=== PATIENT | male | born 1985 | race American Indian/Alaskan Native ===

== ENCOUNTER 2021-12-24 09:47 | Emergency (ER) | payer SELFPAY ==
[2021-12-24 10:07] VITALS: BP 129/90; PULSE 91; TEMP 97.4; BMI 30.7
[2021-12-24] MEDS ORDERED: KETOROLAC TROMETHAMINE 30 MG/1 ML VIAL IM ONE (10:34)
[2021-12-24] MEDS ORDERED: KETOROLAC TROMETHAMINE 30 MG/1 ML VIAL ONE (10:41)
== END 2021-12-24 10:45 | disposition home or self-care (01) ==
LOC: JERFT 09:47
PROC: 3E023GC Introduction of Other Therapeutic Substance into Muscle, Percutaneous Approach (ICD-10-PCS; principal; 2021-12-24)
DX: K08.89 Other specified disorders of teeth and supporting structures (principal)
CPT/HCPCS: 99284-25

== ENCOUNTER 2022-03-11 08:06 | Emergency (ER) | payer SELFPAY ==
[2022-03-11 08:19] VITALS: BP 119/84; PULSE 104; TEMP 99; BMI 29.9
[2022-03-11] MEDS ORDERED: predniSONE 20 MG TABLET (UD) PO ONE (08:48)
[2022-03-11] MEDS ORDERED: AZITHROMYCIN 250 MG TABLET PO ONE (08:48)
[2022-03-11] MEDS ORDERED: AZITHROMYCIN 250 MG TABLET ONE (08:53)
[2022-03-11] MEDS ORDERED: predniSONE 20 MG TABLET (UD) ONE (08:53)
== END 2022-03-11 09:15 | disposition home or self-care (01) ==
LOC: JER 08:06
DX: J03.90 Acute tonsillitis, unspecified (principal)
CPT/HCPCS: 87651; 99283-25; C9803-CS; U0003; U0005

== ENCOUNTER 2022-03-12 06:53 | Emergency (ER) | payer SELFPAY ==
[2022-03-12 06:58] VITALS: TEMP 101.4; BMI 29.1
[2022-03-12] MEDS ORDERED: NALOXONE HCL 0.4 MG/ML VIAL IVPUSH ONE (07:02)
[2022-03-12] MEDS ORDERED: ACETAMINOPHEN 1000 MG/100 ML BAG IVPB ONE (07:26)
[2022-03-12] MEDS ORDERED: SODIUM CHLORIDE 0.9% 500 ML INFUS.BAG IV ONE (07:27)
[2022-03-12] MEDS ORDERED: SODIUM CHLORIDE 1,000 ML IV STA (07:33)
[2022-03-12] MEDS ORDERED: ACETAMINOPHEN INJECTION 100 ML IVPB ONE (08:08)
[2022-03-12 08:19] LABS: BASO % 0.5 % (0-2.0); EOS % 0.2 % (0-4.5); HEMATOCRIT 47.7 % (35.4-49); HEMOGLOBIN 15.8 GM/dL (11.7-16.9); LYMPH % 14.4 % (8-40); MCH 26.8 pg (25.7-33.7); MCHC 33.1 g/dl (32.0-35.9); MEAN CELL VOLUME 81.2 fl (80-96); MEAN PLT VOLUME 9.5 fl (7.5-11.1); MONO % 17.9 % (3.8-10.2); PLATELET COUNT 160 10^3/uL (134-434); RBC 5.87 M/mm3 (4.00-5.60); RDW 14.5 % (11.9-15.9); WHITE BLOOD COUNT 7.6 K/mm3 (4.0-10.0)
[2022-03-12 08:34] LABS: INR 1.15 (0.83-1.09); PROTHROMBIN TIME (PATIENT) 13.2 SEC (9.7-13.0)
[2022-03-12 08:36] LABS: ACTIVATED PTT 29.3 SECONDS (25.2-36.5)
[2022-03-12 08:37] LABS: CHLORIDE 107 mmol/L (98-107); SODIUM 141 mmol/L (136-145)
[2022-03-12 08:38] LABS: ALBUMIN 3.6 g/dl (3.4-5.0); CALCIUM 8.3 mg/dL (8.5-10.1); GLUCOSE,RANDOM 109 mg/dL (74-106)
[2022-03-12 08:39] LABS: ANION GAP 8 MMOL/L (8-16); CO2 26 mmol/L (21-32)
[2022-03-12 08:42] LABS: CREATININE 1.2 mg/dL (0.55-1.3); SGOT/AST 102 U/L (15-37); SGPT/ALT 143 U/L (13-61)
[2022-03-12 08:44] LABS: EPI CELLS >36 /uL (0-25.1); HYALINE CASTS 6 /uL (0-3.1); URINE APPEARANCE CLEAR; URINE BACTERIA 12 /uL (0-1359); URINE BILIRUBIN NEGATIVE (NEGATIVE); URINE COLOR DK YELLOW; URINE GLUCOSE (UA) NEGATIVE (NEGATIVE); URINE KETONE TRACE (NEGATIVE); URINE LEUK ESTERASE NEGATIVE (NEGATIVE); URINE NITRITE NEGATIVE (NEGATIVE); URINE PROTEIN 2+ (NEGATIVE); URINE RBC 143 /uL (0-23.9); URINE WBC 19 /uL (0-25.8)
[2022-03-12 08:44] LABS: BILIRUBIN,TOTAL 1.1 mg/dL (0.2-1); TOT PROT 7.5 g/dl (6.4-8.2)
[2022-03-12 08:45] LABS: ALK PHOS 110 U/L (45-117)
[2022-03-12 08:51] LABS: PHENCYCLIDINE,URINE NEGATIVE (NEGATIVE)
[2022-03-12 08:52] LABS: METHADONE, UR NEGATIVE (NEGATIVE); OPIATES, URI NEGATIVE (NEGATIVE); URINE BARBITURATES NEGATIVE (NEGATIVE)
[2022-03-12] MEDS ORDERED: DEXAMETHASONE SOD PHOSPHATE 10 MG/1 ML VIAL IVPUSH ONE (09:00)
[2022-03-12 09:10] LABS: COCAINE, UR NEGATIVE (NEGATIVE); URINE AMPHETAMINES NEGATIVE (NEGATIVE); URINE BENZODIAZEPINES NEGATIVE (NEGATIVE)
[2022-03-12] MEDS ORDERED: CLINDAMYCIN 900 MG PREMIX IVPB 900 MG/50 ML BAG IVPB ONE ×3 (09:10→09:39)
[2022-03-12] MEDS ORDERED: DEXAMETHASONE SOD PHOSPHATE 10 MG/1 ML VIAL ONE (09:38)
[2022-03-12 10:00] VITALS: BP 132/89; PULSE 96
== END 2022-03-12 13:06 | disposition short-term general hospital (02) ==
LOC: JER 06:53
PROC: 3E03329 Introduction of Other Anti-infective into Peripheral Vein, Percutaneous Approach (ICD-10-PCS; principal; 2022-03-12)
PROC: 3E033NZ Introduction of Analgesics, Hypnotics, Sedatives into Peripheral Vein, Percutaneous Approach (ICD-10-PCS; 2022-03-12)
PROC: 3E0337Z Introduction of Electrolytic and Water Balance Substance into Peripheral Vein, Percutaneous Approach (ICD-10-PCS; 2022-03-12)
PROC: 3E033GC Introduction of Other Therapeutic Substance into Peripheral Vein, Percutaneous Approach (ICD-10-PCS; 2022-03-12)
DX: J36 Peritonsillar abscess (principal); R50.9 Fever, unspecified; J98.8 Other specified respiratory disorders
CPT/HCPCS: 36415; 70450-TC; 70491-TC; 71045-TC-FY; 71260-TC; 72125-TC; 74177-TC; 80053; 80307; 81003; 82553; 83605; 84484; 85025; 85610; 85730; 86850; 86900; 86901; 87040; 87086; 93005; 93010; 99285-25; C9803-CS; J1100; Q9967; U0003; U0005

== ENCOUNTER 2022-07-27 12:43 | Emergency (ER) | payer SELFPAY ==
[2022-07-27 13:38] VITALS: BP 125/86; PULSE 90; RESP 20; TEMP 98; BMI 29.9
[2022-07-27] MEDS ORDERED: ACETAMINOPHEN 500 MG TABLET (FP) PO ONE (14:12)
[2022-07-27] MEDS ORDERED: guaiFENesin 200 MG/10 ML 10 ML UNIT-DOSE CUPS PO ONE (14:12)
== END 2022-07-27 16:00 | disposition home or self-care (01) ==
LOC: JER 12:43
DX: J20.9 Acute bronchitis, unspecified (principal)
CPT/HCPCS: 0241U-QW; 71046-TC-FY; 99284-25

== ENCOUNTER 2023-08-28 11:45 | Emergency (ER) | payer SELFPAY ==
[2023-08-28 11:55] VITALS: BP 134/88; PULSE 96; RESP 18; TEMP 97.6; BMI 30.7
[2023-08-28] MEDS ORDERED: ONDANSETRON 4 MG/2 ML VIAL IVPUSH ONE (13:02)
[2023-08-28] MEDS ORDERED: SODIUM CHLORIDE 0.9% 500 ML INFUS.BAG IV ONE (13:02)
[2023-08-28] MEDS ORDERED: MAG HYDROX/AL HYDROX/SIMETH 30 ML UNIT-DOSE CUP PO ONE ×2 (13:02→13:13)
[2023-08-28] MEDS ORDERED: ACETAMINOPHEN 1000 MG/100 ML BAG IVPB ONE (13:02)
[2023-08-28] MEDS ORDERED: FAMOTIDINE 20 MG/50 ML IVPB 20 MG/50 ML MG IVPB ONE (13:02)
[2023-08-28] MEDS ORDERED: ONDANSETRON *ODT* 4 MG TABLET SL ONE (13:14)
[2023-08-28] MEDS ORDERED: ACETAMINOPHEN 325 MG TABLET (FP) PO ONE (13:14)
[2023-08-28] MEDS ORDERED: FAMOTIDINE 20 MG TABLET PO ONE (13:16)
[2023-08-28] MEDS ORDERED: ONDANSETRON *ODT* 4 MG TABLET ONE (13:19)
[2023-08-28] MEDS ORDERED: MAG HYDROX/AL HYDROX/SIMETH 30 ML UNIT-DOSE CUP ONE (13:19)
[2023-08-28] MEDS ORDERED: ACETAMINOPHEN 325 MG TABLET (FP) ONE (13:19)
[2023-08-28] MEDS ORDERED: FAMOTIDINE 20 MG TABLET ONE (13:19)
[2023-08-28 13:52] LABS: BASO % 0.4 % (0-2.0); EOS % 0.1 % (0-4.5); HEMATOCRIT 54.4 % (35.4-49); HEMOGLOBIN 17.5 GM/dL (11.7-16.9); LYMPH % 11.9 % (8-40); MCH 26.9 pg (25.7-33.7); MCHC 32.2 g/dl (32.0-35.9); MEAN CELL VOLUME 83.5 fl (80-96); MEAN PLT VOLUME 9.1 fl (7.5-11.1); MONO % 6.6 % (3.8-10.2); PLATELET COUNT 211 10^3/uL (134-434); RBC 6.52 M/mm3 (4.00-5.60); RDW 15.1 % (11.9-15.9); WHITE BLOOD COUNT 9.2 K/mm3 (4.0-10.0)
[2023-08-28 14:10] LABS: POTASSIUM 4.6 mmol/L (3.5-5.1)
[2023-08-28 14:12] LABS: CALCIUM 10.6 mg/dL (8.5-10.1)
[2023-08-28 14:13] LABS: ALBUMIN 4.8 g/dl (3.4-5.0); BLOOD UREA NITROGEN 11.7 mg/dL (7-18); MAGNESIUM 2.1 mg/dL (1.8-2.4)
[2023-08-28 14:16] LABS: CREATININE 1.2 mg/dL (0.55-1.3)
[2023-08-28 14:17] LABS: TOT PROT 9.1 g/dl (6.4-8.2)
[2023-08-28 14:18] LABS: BILIRUBIN,TOTAL 1.3 mg/dL (0.2-1)
== END 2023-08-28 15:07 | disposition home or self-care (01) ==
LOC: JER 11:45
DX: R07.9 Chest pain, unspecified (principal); R11.2 Nausea with vomiting, unspecified; R06.02 Shortness of breath; R42 Dizziness and giddiness; R00.0 Tachycardia, unspecified; Z20.822 Contact with and (suspected) exposure to COVID-19
CPT/HCPCS: 0241U-QW; 36415; 71045-TC-FY; 80053; 83690; 83735; 84484; 85025; 93005; 93010; 99285-25; Q0162

== ENCOUNTER 2025-01-31 10:37 | Emergency (ER) | payer BC ==
[2025-01-31 10:44] VITALS: BP 115/84; PULSE 72; RESP 20; TEMP 97.9; BMI 30.7
== END 2025-01-31 11:20 | disposition home or self-care (01) ==
LOC: JER 10:37 → JERFT 10:37
DX: R09.81 Nasal congestion (principal); R05.9 Cough, unspecified; J06.9 Acute upper respiratory infection, unspecified; M79.10 Myalgia, unspecified site
CPT/HCPCS: 99283-25